=== PATIENT | female | born 1995 | race Two or more races ===

== ENCOUNTER 2023-10-12 20:00 | Inpatient (IN) | payer OTHER ==
[2023-10-12 20:58] VITALS: BMI 37.0
[2023-10-12] MEDS ORDERED: DINOPROSTONE 10 MG VAGINAL SUPPOSITORY VG ONE (21:15)
[2023-10-12] MEDS ORDERED: ELECTROLYTE-148 SOLN 1,000 ML IV SCH (21:30)
[2023-10-12 21:50] LABS: BASO % 0.1 % (0-2.0); EOS % 0.1 % (0-4.5); HEMATOCRIT 29.7 % (32.4-45.2); HEMOGLOBIN 9.5 GM/dL (10.7-15.3); LYMPH % 19.1 % (8-40); MCH 23.8 pg (25.7-33.7); MCHC 32.1 g/dl (32.0-36.0); MEAN CELL VOLUME 74.2 fl (80-96); MEAN PLT VOLUME 7.5 fl (7.5-11.1); MONO % 10.3 % (3.8-10.2); NEUT % 70.4 % (42.8-82.8); PLATELET COUNT 321 10^3/uL (134-434); WHITE BLOOD COUNT 12.8 K/mm3 (4.0-10.0)
[2023-10-12 22:11] LABS: POTASSIUM 4.2 mmol/L (3.5-5.1)
[2023-10-12 22:12] LABS: INR 1.07 (0.83-1.09); PROTHROMBIN TIME (PATIENT) 12.4 SEC (9.7-13.0)
[2023-10-12 22:13] LABS: BLOOD UREA NITROGEN 9.9 mg/dL (7-18)
[2023-10-12 22:15] LABS: ACTIVATED PTT 27.8 SECONDS (25.2-36.5)
[2023-10-12 22:16] LABS: CREATININE 0.6 mg/dL (0.55-1.3)
[2023-10-12] MEDS ORDERED: ZOLPIDEM TARTRATE 5 MG TABLET PO ONE (23:05)
[2023-10-12] MEDS: ELECTROLYTE-148 SOLN 1,000 ML IV SCH (23:35)
[2023-10-13] MEDS ORDERED: CITRIC ACID/SODIUM CITRATE 30 ML UNIT-DOSE CUP PO ONE (02:00)
[2023-10-13] MEDS ORDERED: PROMETHAZINE HCL 25 MG/1 ML VIAL IVPB ONE (03:00)
[2023-10-13] MEDS ORDERED: BUTORPHANOL TARTRATE 1 MG/ML VIAL IVPB ONE (03:00)
[2023-10-13] MEDS ORDERED: BUTORPHANOL TARTRATE 2 MG/ML VIAL ONE (03:04)
[2023-10-13] MEDS ORDERED: PROMETHAZINE HCL 25 MG/1 ML VIAL ONE (03:05)
[2023-10-13] MEDS: ELECTROLYTE-148 SOLN 1,000 ML IV SCH ×2 (04:30→09:37)
[2023-10-13] MEDS ORDERED: OXYTOCIN 30 UNITS in 0.9% NS 30 UNIT/500 ML INFUS.BAG IVPB SCH (06:15)
[2023-10-13] MEDS ORDERED: FENTANYL CITRATE/PF 50 MCG/ML VIAL ONE ×2 (08:44→12:21)
[2023-10-13] MEDS ORDERED: FENTANYL/BUPIVACAINE/NS/PF - PCEA - 50 ML DISP.SYRIN EP ONE (08:45)
[2023-10-13] MEDS: FENTANYL/BUPIVACAINE/NS/PF - PCEA - 50 ML DISP.SYRIN EP SCH (09:10)
[2023-10-13] MEDS ORDERED: NALOXONE HCL 0.4 MG/ML VIAL IVPUSH PRN (10:52)
[2023-10-13] MEDS ORDERED: LIDO 2%/EPI 1:200000 PRESRVFRE (20 ML SDVIAL) ONE ×2 (12:10→12:11)
[2023-10-13] MEDS ORDERED: OXYTOCIN 30 UNITS in 0.9% NS 30 UNIT/500 ML INFUS.BAG IVPB ONE (12:11)
[2023-10-13] MEDS ORDERED: SODIUM CHLORIDE 0.9% P/F 10 ML VIAL IJ ONE (12:14)
[2023-10-13] MEDS ORDERED: ceFAZolin SODIUM 1 GM VIAL ONE (12:14)
[2023-10-13] MEDS ORDERED: ONDANSETRON 4 MG/2 ML VIAL ONE ×2 (12:14→22:10)
[2023-10-13] MEDS ORDERED: SODIUM BICARBONATE 8.4% 50 MEQ/50 ML VIAL ONE (12:14)
[2023-10-13] MEDS ORDERED: SUCCINYLCHOLINE CHLORIDE 200 MG/10 ML SYRINGE ONE ×2 (12:19→21:27)
[2023-10-13] MEDS ORDERED: PROPOFOL 20 ML ONE (12:20)
[2023-10-13] MEDS ORDERED: morphine SULFATE/PF 1 MG/2 ML (2cc Syringe - QUVA) ONE (12:21)
[2023-10-13] MEDS ORDERED: KETOROLAC TROMETHAMINE 30 MG/1 ML VIAL ONE (13:11)
[2023-10-13] MEDS ORDERED: OXYTOCIN 20 UNITS in 0.9% NS 20 UNIT/1,000 ML INFUS.BAG IV ONE (14:20)
[2023-10-13] MEDS ORDERED: ACETAMINOPHEN 325 MG TABLET (FP) PO PRN ×2 (14:22→23:26)
[2023-10-13] MEDS ORDERED: ONDANSETRON 4 MG/2 ML VIAL IVPB PRN (14:22)
[2023-10-13] MEDS: OXYTOCIN 20 UNITS in 0.9% NS 20 UNIT/1,000 ML INFUS.BAG IV SCH (14:25)
[2023-10-13] MEDS: ACETAMINOPHEN 1000 MG/100 ML BAG IVPB SCH (15:35)
[2023-10-13] MEDS ORDERED: ACETAMINOPHEN INJECTION 100 ML IVPB ONE (15:36)
[2023-10-13] MEDS ORDERED: TRANEXAMIC ACID 1000 MG/10 ML VIAL ONE (15:59)
[2023-10-13] MEDS ORDERED: TRANEXAMIC ACID 1000 MG/10 ML VIAL IVPB ONE (16:00)
[2023-10-13 16:24] LABS: HEMATOCRIT 27.4 % (32.4-45.2); HEMOGLOBIN 8.5 GM/dL (10.7-15.3); MCH 23.2 pg (25.7-33.7); MEAN CELL VOLUME 74.8 fl (80-96); MEAN PLT VOLUME 7.7 fl (7.5-11.1); PLATELET COUNT 321 10^3/uL (134-434); RBC 3.66 M/mm3 (3.60-5.2); RDW 16.4 % (11.6-15.6); WHITE BLOOD COUNT 20.6 K/mm3 (4.0-10.0)
[2023-10-13 18:03] LABS: ANISOCYTOSIS 2+; MACROCYTOSIS 0; OVALOCYTE 2+; TEAR DROP CELLS 1+
[2023-10-13] MEDS: IBUPROFEN 800 MG/8 ML IJ IVPB SCH ×2 (18:12→22:30)
[2023-10-13] MEDS: CEFAZOLIN SODIUM 2 GM in DEXTROSE 5%-WATER 100 ML IVPB SCH (18:35)
[2023-10-13] MEDS ORDERED: CEFAZOLIN SODIUM 2 GM VIAL ONE (18:38)
[2023-10-13 20:05] LABS: BASO % 0.1 % (0-2.0); HEMATOCRIT 18.1 % (32.4-45.2); LYMPH % 8.2 % (8-40); MCH 23.1 pg (25.7-33.7); MCHC 30.8 g/dl (32.0-36.0); MEAN PLT VOLUME 7.9 fl (7.5-11.1); MONO % 9.7 % (3.8-10.2); PLATELET COUNT 281 10^3/uL (134-434); RBC 2.41 M/mm3 (3.60-5.2); RDW 15.9 % (11.6-15.6); WHITE BLOOD COUNT 17.2 K/mm3 (4.0-10.0)
[2023-10-13 20:13] LABS: HEMOGLOBIN 5.6 GM/dL (10.7-15.3)
[2023-10-13 20:27] LABS: POTASSIUM 3.7 mmol/L (3.5-5.1)
[2023-10-13 20:31] LABS: ALBUMIN 1.6 g/dl (3.4-5.0); BLOOD UREA NITROGEN 9.1 mg/dL (7-18)
[2023-10-13 20:34] LABS: CREATININE 0.6 mg/dL (0.55-1.3)
[2023-10-13 20:35] LABS: BILIRUBIN,TOTAL 0.5 mg/dL (0.2-1); INR 1.14 (0.83-1.09); PROTHROMBIN TIME (PATIENT) 13.2 SEC (9.7-13.0)
[2023-10-13 20:36] LABS: TOT PROT 4.4 g/dl (6.4-8.2)
[2023-10-13 20:38] LABS: ACTIVATED PTT 23.6 SECONDS (25.2-36.5)
[2023-10-13 20:48] LABS: CALCIUM 7.4 mg/dL (8.5-10.1)
[2023-10-13] MEDS ORDERED: ETOMIDATE 20 MG/10 ML VIAL IVPUSH ONE (21:27)
[2023-10-13] MEDS ORDERED: KETAMINE HCL 200 MG/20 ML VIAL ONE (21:27)
[2023-10-13] MEDS ORDERED: MIDAZOLAM HCL 2 MG/2 ML SINGLE DOSE VIAL ONE ×3 (21:54→23:13)
[2023-10-13] MEDS ORDERED: CLINDAMYCIN 900 MG PREMIX BAG IVPB ONE (21:55)
[2023-10-13] MEDS ORDERED: ROCURONIUM BROMIDE 50 MG/5 ML SYRINGE ONE (21:55)
[2023-10-13] MEDS ORDERED: CHLORHEXIDINE GLUCONATE 4% CLEANSER FOR DECOLONIZATION TP SCH (22:00)
[2023-10-13] MEDS ORDERED: CLINDAMYCIN PHOSPHATE 600 MG/4 ML VIAL ONE (22:05)
[2023-10-13] MEDS ORDERED: DEXAMETHASONE SOD PHOSPHATE 4 MG/1 ML VIAL ONE (22:10)
[2023-10-13] MEDS ORDERED: OXYTOCIN 10 UNITS/ML VIAL ONE (22:33)
[2023-10-13] MEDS ORDERED: GLYCOPYRROLATE 0.2 MG/1 ML VIAL ONE (22:33)
[2023-10-13] MEDS ORDERED: NEOSTIGMINE METHYLSULFATE 0.5 MG/1 ML - 10 ML MDV ONE (22:33)
[2023-10-13] MEDS ORDERED: BENZOIN/ALOE VERA/STORAX/TOLU 58 ML BOTTLE ONE (22:51)
[2023-10-13] MEDS ORDERED: DEXMEDETOMIDINE PREMIX 400 MCG/100 ML BAG IVPB ONE (23:13)
[2023-10-13] MEDS ORDERED: oxyCODONE HCL 5 MG TABLET PO PRN (23:26)
[2023-10-13] MEDS ORDERED: KETOROLAC TROMETHAMINE 30 MG/1 ML VIAL IVPUSH PRN (23:26)
[2023-10-13] MEDS ORDERED: SIMETHICONE 80 MG TAB.CHEW (FP) PO PRN (23:26)
[2023-10-13] MEDS ORDERED: BISACODYL 5 MG TABLET.DR (FP) PO PRN (23:26)
[2023-10-13] MEDS ORDERED: ONDANSETRON 4 MG/2 ML VIAL IVPUSH PRN ×2 (23:26)
[2023-10-13] MEDS ORDERED: DOCUSATE SODIUM 100 MG CAPSULE (FP) PO PRN (23:26)
[2023-10-13] MEDS ORDERED: ZOLPIDEM TARTRATE 5 MG TABLET PO PRN (23:26)
[2023-10-13] MEDS: MUPIROCIN 2% TOPICAL OINTMENT FOR DECOLONIZATION NS SCH (23:30)
[2023-10-14 00:22] LABS: HEMATOCRIT 29.5 % (32.4-45.2); HEMOGLOBIN 9.3 GM/dL (10.7-15.3); LYMPH % 4.6 % (8-40); MCH 26.2 pg (25.7-33.7); MCHC 31.6 g/dl (32.0-36.0); MONO % 6.8 % (3.8-10.2); NEUT % 88.6 % (42.8-82.8); PLATELET COUNT 203 10^3/uL (134-434); RBC 3.56 M/mm3 (3.60-5.2); RDW 18.1 % (11.6-15.6); WHITE BLOOD COUNT 19.1 K/mm3 (4.0-10.0)
[2023-10-14] MEDS: SENNOSIDES/DOCUSATE COMBO (SENNA PLUS) TABLET (UD) PO SCH ×2 (00:36→21:01)
[2023-10-14] MEDS: ELECTROLYTE-148 SOLN 1,000 ML IV SCH (00:37)
[2023-10-14] MEDS: ACETAMINOPHEN 1000 MG/100 ML BAG IVPB SCH ×3 (00:38→08:10)
[2023-10-14] MEDS ORDERED: DEXMEDETOMIDINE PREMIX 400 MCG/100 ML BAG IVPB SCH (00:45)
[2023-10-14] MEDS: CEFAZOLIN SODIUM 2 GM in DEXTROSE 5%-WATER 100 ML IVPB SCH (01:02)
[2023-10-14] MEDS: CLINDAMYCIN 600MG PREMIX IVPB 600 MG/50 ML BAG IVPB SCH ×4 (03:26→20:53)
[2023-10-14] MEDS: OXYTOCIN 20 UNITS in 0.9% NS 20 UNIT/1,000 ML INFUS.BAG IV SCH ×2 (05:54→14:05)
[2023-10-14] MEDS: IBUPROFEN 800 MG/8 ML IJ IVPB SCH (06:26)
[2023-10-14] MEDS ORDERED: LACTATED RINGERS SOLUTION 1000 ML INFUS.BAG IV ONE (07:01)
[2023-10-14 07:09] LABS: BASO % 0.1 % (0-2.0); HEMATOCRIT 26.3 % (32.4-45.2); HEMOGLOBIN 8.8 GM/dL (10.7-15.3); LYMPH % 6.8 % (8-40); MCH 26.9 pg (25.7-33.7); MCHC 33.4 g/dl (32.0-36.0); MEAN CELL VOLUME 80.7 fl (80-96); MEAN PLT VOLUME 7.9 fl (7.5-11.1); MONO % 7.7 % (3.8-10.2); NEUT % 85.4 % (42.8-82.8); PLATELET COUNT 200 10^3/uL (134-434); RBC 3.26 M/mm3 (3.60-5.2); WHITE BLOOD COUNT 15.6 K/mm3 (4.0-10.0)
[2023-10-14 07:29] LABS: POTASSIUM 4.3 mmol/L (3.5-5.1)
[2023-10-14 07:31] LABS: ALBUMIN 1.7 g/dl (3.4-5.0); BLOOD UREA NITROGEN 10.3 mg/dL (7-18); CALCIUM 7.8 mg/dL (8.5-10.1)
[2023-10-14 07:32] LABS: MAGNESIUM 1.6 mg/dL (1.8-2.4)
[2023-10-14 07:34] LABS: CREATININE 0.5 mg/dL (0.55-1.3); PHOSPHOROUS 3.7 mg/dL (2.5-4.9)
[2023-10-14 07:36] LABS: TOT PROT 4.6 g/dl (6.4-8.2)
[2023-10-14] MEDS ORDERED: ACETAMINOPHEN 325 MG TABLET (FP) PO PRN ×3 (08:32→14:16)
[2023-10-14] MEDS ORDERED: MAGNESIUM SULFATE IN WATER 2 GM/50 ML IVPB IVPB ONE (08:43)
[2023-10-14] MEDS: MUPIROCIN 2% TOPICAL OINTMENT FOR DECOLONIZATION NS SCH (09:34)
[2023-10-14] MEDS ORDERED: MAGNESIUM 1GM/D5W - 1 GM/100 ML IVPB IVPB ONE (10:00)
[2023-10-14] MEDS: FENTANYL/BUPIVACAINE/NS/PF - PCEA - 50 ML DISP.SYRIN EP SCH (11:04)
[2023-10-14] MEDS ORDERED: IRON SUCROSE INJECTION 200 MG in SODIUM CHLORIDE 90 ML IVPB ONE (11:30)
[2023-10-14] MEDS ORDERED: oxyCODONE HCL 5 MG TABLET PO PRN ×2 (14:22)
[2023-10-14] MEDS ORDERED: IBUPROFEN 600 MG TABLET (FP) PO PRN ×2 (14:22→23:27)
[2023-10-14] MEDS ORDERED: BISACODYL 10 MG SUPP.RECT RC PRN (14:22)
[2023-10-14] MEDS: SIMETHICONE 80 MG TAB.CHEW (FP) PO PRN (20:56)
[2023-10-15 08:19] LABS: BASO % 0.2 % (0-2.0); EOS % 0.1 % (0-4.5); HEMATOCRIT 25.4 % (32.4-45.2); HEMOGLOBIN 8.5 GM/dL (10.7-15.3); LYMPH % 10.6 % (8-40); MCH 26.8 pg (25.7-33.7); MCHC 33.3 g/dl (32.0-36.0); MEAN CELL VOLUME 80.3 fl (80-96); MEAN PLT VOLUME 7.5 fl (7.5-11.1); MONO % 8.2 % (3.8-10.2); NEUT % 80.9 % (42.8-82.8); PLATELET COUNT 252 10^3/uL (134-434); RBC 3.16 M/mm3 (3.60-5.2); RDW 17.8 % (11.6-15.6); WHITE BLOOD COUNT 14.5 K/mm3 (4.0-10.0)
[2023-10-15 08:29] LABS: POTASSIUM 3.6 mmol/L (3.5-5.1)
[2023-10-15 08:31] LABS: BLOOD UREA NITROGEN 6.8 mg/dL (7-18)
[2023-10-15 08:35] LABS: CREATININE 0.4 mg/dL (0.55-1.3)
[2023-10-15 08:36] LABS: CALCIUM 9.1 mg/dL (8.5-10.1)
[2023-10-15] MEDS: ACETAMINOPHEN 500 MG TABLET (FP) PO PRN ×2 (10:00→17:28)
[2023-10-15] MEDS: SIMETHICONE 80 MG TAB.CHEW (FP) PO PRN (10:00)
[2023-10-15] MEDS: FENTANYL/BUPIVACAINE/NS/PF - PCEA - 50 ML DISP.SYRIN EP SCH ×2 (19:28→19:32)
[2023-10-15] MEDS: SENNOSIDES/DOCUSATE COMBO (SENNA PLUS) TABLET (UD) PO SCH (22:01)
[2023-10-16] MEDS: SIMETHICONE 80 MG TAB.CHEW (FP) PO PRN (05:35)
[2023-10-16] MEDS: ACETAMINOPHEN 500 MG TABLET (FP) PO PRN ×2 (05:35→19:32)
[2023-10-16] MEDS: SENNOSIDES/DOCUSATE COMBO (SENNA PLUS) TABLET (UD) PO SCH (21:19)
[2023-10-17 09:53] VITALS: BP 133/77; PULSE 90; RESP 16; TEMP 98.3
== END 2023-10-17 12:00 | disposition home or self-care (01) | DRG 540 ==
LOC: JLDR 20:00 → JICU 10-13 19:46 → J3W 10-14 14:39
PROVIDERS: ADMIT Specialist; ATTEND Specialist
PROC: 0DNW0ZZ Release Peritoneum, Open Approach (ICD-10-PCS; 2023-10-13)
PROC: 0DCW0ZZ Extirpation of Matter from Peritoneum, Open Approach (ICD-10-PCS; 2023-10-13)
PROC: 30233L1 Transfusion of Nonautologous Fresh Plasma into Peripheral Vein, Percutaneous Approach (ICD-10-PCS; 2023-10-13)
PROC: 10D00Z1 Extraction of Products of Conception, Low, Open Approach (ICD-10-PCS; principal; 2023-10-13 21:13)
DX: O13.4 Gestational [pregnancy-induced] hypertension without significant proteinuria, complicating childbirth (principal); O61.8 Other failed induction of labor; K66.0 Peritoneal adhesions (postprocedural) (postinfection); O99.893 Other specified diseases and conditions complicating puerperium; I95.89 Other hypotension; R58 Hemorrhage, not elsewhere classified; R00.0 Tachycardia, unspecified; D62 Acute posthemorrhagic anemia; Z3A.39 39 weeks gestation of pregnancy; Z37.0 Single live birth
CPT/HCPCS: 36415; 36430; 80048; 80053; 83735; 84100; 85025; 85610; 85730; 86780; 86850; 86900; 86901; 86922; 88304-TC; 88305-TC; 88307-TC; 94010; J1756; P9017; P9038; P9058